=== PATIENT | male | born 1960 | race Caucasian/White ===

== ENCOUNTER 2021-06-25 20:52 | Emergency (ER) | payer SELFPAY ==
[~2021-06-25] VITALS: Ht 177.8 cm; Wt 72.6 kg
[2021-06-25] MEDS ORDERED: IOHEXOL 300 MG/ML 100ML BOTTLE IJ ONE (21:38)
[2021-06-25] MEDS ORDERED: SODIUM CHLORIDE 0.9% 2,000 ML IV ONE (21:45)
[2021-06-25] MEDS ORDERED: SODIUM CHLORIDE 0.9% 1,000 ML IV ONE (23:00)
[2021-06-25 23:21] LABS: Basophils # (auto) 0.1 10 ^3/uL (0-0.2); Basophils % (auto) 0.3 % (0.0-2.0); Eosinophils # (auto) 0 10 ^3/uL (0-0.8); Lymphocytes # (auto) 1.4 10 ^3/uL (0.4-5.4); White Blood Cell 18.1 10^3/uL (4.4-10.8)
[2021-06-25 23:30] LABS: Hematocrit 20.4 % (41.0-53.0); Hemoglobin 6.5 g/dL (13.5-17.5); Lymphocytes % (auto) 7.7 % (10.0-50.0); Mean Corpuscular Hemoglobin 24.7 pg (28.0-32.0); Mean Corpuscular Volume 77.3 fL (80.0-100.0); Monocytes # (auto) 0.6 10 ^3/uL (0-1.3); Monocytes % (auto) 3.3 % (0.0-12.0); Neutrophils % (auto) 88.7 % (37.0-80.0); Red Blood Cells 2.63 10^6/uL (4.5-5.90); Red Cell Distribution Width 20.4 % (11.8-14.3)
[2021-06-25 23:36] LABS: INR 1.19 (0.9-1.15); Partial Thromboplastin Time 26.7 sec (23.6-33.0)
[2021-06-25 23:43] LABS: Albumin 2.3 g/dL (3.4-5.0); BUN/Creatinine Ratio 8.6; Calcium 7.2 mg/dL (8.5-10.1); Potassium 4.6 mmol/L (3.5-5.1)
[2021-06-26 00:02] LABS: Bilirubin, Total 0.3 mg/dL (0.2-1.0); Total Protein 4.3 g/dL (6.4-8.2)
[2021-06-26 00:31] VITALS: BP 80/46
== END 2021-06-26 00:40 | disposition short-term general hospital (02) ==
LOC: EDBD 20:52 → ER 20:55
DX: S30.1XXA Contusion of abdominal wall, initial encounter (principal); I95.9 Hypotension, unspecified; E11.9 Type 2 diabetes mellitus without complications; I10 Essential (primary) hypertension; E78.5 Hyperlipidemia, unspecified; F17.210 Nicotine dependence, cigarettes, uncomplicated; Z86.73 Personal history of transient ischemic attack (TIA), and cerebral infarction without residual deficits; Z20.822 Contact with and (suspected) exposure to COVID-19; W22.8XXA Striking against or struck by other objects, initial encounter; Y93.89 Activity, other specified; Y92.89 Other specified places as the place of occurrence of the external cause; Y99.8 Other external cause status
CPT/HCPCS: 36415; 36430; 36600; 70450; 71260; 72125; 74177; 80053; 82805; 83735; 85025; 85610; 85730; 86850; 86900; 86901; 86920; 87426; 96360; 96361; 99285; J7030; P9016; Q9967